=== PATIENT | male | born 1980 | race Caucasian/White ===

== ENCOUNTER 2021-07-05 19:00 | Emergency (ER) | payer SELFPAY ==
[~2021-07-05] VITALS: Ht 175.3 cm; Wt 90.9 kg
[2021-07-05 19:13] VITALS: TEMP 98.4
[2021-07-05 20:50] VITALS: BP 114/84; PULSE 82
== END 2021-07-05 20:50 | disposition home or self-care (01) ==
LOC: COL.ER 19:00
DX: U07.1 COVID-19 (principal)

== ENCOUNTER 2021-08-17 16:21 | Emergency (ER) | payer SELFPAY ==
[~2021-08-17] VITALS: Ht 175.3 cm; Wt 90.9 kg
[2021-08-17 17:03] VITALS: TEMP 98.7
[2021-08-17] MEDS ORDERED: FLEXERIL 1010 MG/TAB PO (19:24)
[2021-08-17 19:46] VITALS: BP 139/94; PULSE 80
== END 2021-08-17 19:46 | disposition home or self-care (01) ==
LOC: COL.ER 16:21
DX: S39.012A Strain of muscle, fascia and tendon of lower back, initial encounter (principal); X50.0XXA Overexertion from strenuous movement or load, initial encounter; Y92.59 Other trade areas as the place of occurrence of the external cause; Y99.0 Civilian activity done for income or pay
CPT/HCPCS: J1885